=== PATIENT | male | born 2000 | race Caucasian/White ===

== ENCOUNTER 2018-06-04 19:08 | Emergency (ER) | payer OTHER ==
[~2018-06-04] VITALS: Ht 180.3 cm; Wt 81.6 kg
[2018-06-04 19:15] VITALS: BP 143/81
--- NOTE | 2018-06-04 20:04 | ER.PDOC ---
General Chief Complaint: Requesting Medical Care Stated Complaint: POSS CONCUSSION Time seen by MD: 17:05 Source: patient Exam Limitations: no limitations History of Present Illness Initial Comments fell off horse yesterday hit head, has headache and neck pain, no other injury, no loc pos amnesia of incident, post neck pain, no back pain no arm or leg or chest or abdominal pain, no weakness or sensation change, no vomiting Occurred: other Where: home Severity: moderate Location: parietal Method of Injury: fell Associated symptoms: Memory impairment Remembers: coming to hospital Past Medical History Medical History: no pertinent history Review of Systems Constitutional: denies fever Eyes: denies blindness Ears, Nose, Mouth, Throat: denies ear pain, denies ear discharge, denies nose pain Respiratory: denies cough Cardiovascular: denies chest pain, denies palpitations, denies syncope Gastrointestinal: denies abdominal pain Musculoskeletal: denies back pain, denies joint swelling; neck pain Skin: denies rash Psychiatric/Neurological: denies anxiety Endocrine: denies flushing Hematologic/Lymphatic: denies anemia Physical Exam General Appearance: Alert, No Apparent Distress Head: No Evidence of Injury Eye: PERRL, EOMI ENT: Nml external inspection Neck: trachea midline Cardiovascular/Respiratory: Regular Rate, Rhythm Gastrointestinal: Normal Bowel Sounds Back: Normal Inspection Extremities: Normal Range of Motion, Non-Tender, Normal Inspection NEURO/PSYCH: Alert, Oriented x3 Cranial Nerves: Normal Hearing Coordination/Gait: Normal Gait Motor/Sensory: No Motor Deficit, No Sensory Deficit Skin: Normal Color Comments mild tenderness to palpation post cervical diffuse mostly in musculature Montez Coma Score Best Eye Response: (4) Open Spontaneously Best Verbal Response: (5) Oriented Best Motor Response: (6) Obeys Commands Departure Time of Disposition: 20:31 Disposition: 01 HOME, SELF-CARE Impression: Primary Impression: Concussion Additional Impression: Cervical strain Condition: Stable Duration or Time Spent with Pa: 20 COSTA HEATH MD Jun 04, 2018 20:04
--- NOTE | 2018-06-04 20:11 | DIREP ---
PROCEDURE:CT HEAD OR BRAIN W/O CONTRAST COMPARISON:None. INDICATIONS:head injury TECHNIQUE:CT images were created without intravenous contrast. FINDINGS: VENTRICLES:The ventricles are normal in size and configuration. CEREBRUM:Normal cerebral morphology with appropriate turner white matter differentiation. CEREBELLUM:Negative. BRAINSTEM:Negative. BASAL CISTERNS:Negative. HEMORRHAGE:No MASS LESION:No ACUTE INFARCT:No SKULL:Normal. SINUSES:Normal. OTHER:None CONCLUSION:Normal examination. Dictated by: Pablo Barfield MD on 06/04/2018 at 08:09 PM
--- NOTE | 2018-06-04 20:14 | DIREP ---
PROCEDURE: CT SPINE CERVICAL W/O COMPARISON:None. INDICATIONS:fall off horse FINDINGS: ALIGNMENT:Straightening of the cervical spine VERTEBRAE:Normal. PARASPINAL AREA:Normal. OTHER:No additional findings. CERVICAL DISC LEVELS C2-C3:Normal. C3-C4:Normal. C4-C5:Normal. C5-C6:Normal. C6-C7:Normal. C7-T1:Normal. CONCLUSION:Cervical spines appears straightened without step-off, fracture, or prevertebral soft tissue swelling Dictated by: Pablo Barfield MD on 06/04/2018 at 08:10 PM
[2018-06-04 20:45] VITALS: BP 136/88
[2018-06-04 21:49] VITALS: BP 136/88
== END 2018-06-04 20:48 | disposition home or self-care (01) ==
LOC: ER 19:08
DX: S06.0X0A Concussion without loss of consciousness, initial encounter (principal); S16.1XXA Strain of muscle, fascia and tendon at neck level, initial encounter; V80.010A Animal-rider injured by fall from or being thrown from horse in noncollision accident, initial encounter; Y93.52 Activity, horseback riding; Y92.69 Other specified industrial and construction area as the place of occurrence of the external cause; Y92.89 Other specified places as the place of occurrence of the external cause
CPT/HCPCS: 70450; 72125; 99284